=== PATIENT | male | born 1955 | race Caucasian/White ===

== ENCOUNTER → 2016-12-20 | Outpatient (CLI) | payer OTHER | END | disposition home or self-care (01) | LOC: CVU 06:44 | PROVIDERS: ATTEND Internal Medicine Cardiovascular Disease | DX: I25.10 Atherosclerotic heart disease of native coronary artery without angina pectoris (principal); I65.23 Occlusion and stenosis of bilateral carotid arteries; I10 Essential (primary) hypertension; Z95.5 Presence of coronary angioplasty implant and graft | CPT/HCPCS: 78452; 93017; 93306; 93880; A9502 ==

== ENCOUNTER 2019-10-29 07:50 | Inpatient (IN) | payer OTHER ==
[~2019-10-29] VITALS: Ht 170.2 cm; Wt 89.0 kg
[2019-10-29] MEDS ORDERED: MAALOX/HYOSCYAMINE/LIDOCAINE 45 ML BTL ONE (08:22)
[2019-10-29] MEDS ORDERED: NITROGLYCERIN SINGLE TAB 0.4 MG SL ONE (08:22)
--- NOTE | 2019-10-29 08:25 | NUR ---
PT MEDICATED PER JUL, XRAY AT BEDSIDE
[2019-10-29] MEDS ORDERED: NITROGLYCERIN SINGLE TAB 0.4 MG SL PRN (08:30)
[2019-10-29] MEDS ORDERED: SODIUM CHLORIDE FLUSH 10ML SYR IVF ONE (08:30)
[2019-10-29] MEDS ORDERED: MAALOX/HYOSCYAMINE/LIDOCAINE 45 ML BTL PO ONE (08:30)
[2019-10-29 08:52] LABS: BASOPHILS # (AUTO) 0.05 x10^3/uL (0-0.1); BASOPHILS % (AUTO) 1 % (0-1); EOSINOPHILS # (AUTO) 0.09 x10^3/uL (0-0.4); EOSINOPHILS % (AUTO) 1 % (1-7); LYMPHOCYTES # (AUTO) 1.93 x10^3/uL (1-3.4); LYMPHOCYTES % (AUTO) 29 % (22-44); MD NO; MEAN CORPUSCULAR HEMOGLOBIN 29.6 pg (27.5-34.5); MEAN CORPUSCULAR VOLUME 86.9 fL (81-97); MEAN PLATELET VOLUME 7.7 fL (7.4-10.4); MONOCYTES # (AUTO) 0.28 x10^3/uL (0.2-0.8); MONOCYTES % (AUTO) 4 % (2-9); NEUTROPHILS # (AUTO) 4.28 x10^3/uL (1.8-6.8); NEUTROPHILS % (AUTO) 65 % (42-75); PLATELET COUNT 266 x10^3/uL (130-400); RED BLOOD COUNT 5.09 x10^6/uL (4.38-5.82); RED CELL DISTRIBUTION WIDTH 12.9 % (9.4-14.8)
[2019-10-29 09:06] LABS: ANION GAP 6 mmol/L (5-15); CHLORIDE 109 mmol/L (98-107)
[2019-10-29 09:12] LABS: ALANINE AMINOTRANSFERASE 56 U/L (12-78); ALKALINE PHOSPHATASE 69 U/L (45-117); BILIRUBIN,TOTAL 0.7 mg/dL (0.2-1.0); TOTAL PROTEIN 8.1 g/dL (6.4-8.2)
[2019-10-29] MEDS ORDERED: LEVO125T PO (09:21)
[2019-10-29] MEDS ORDERED: ASPI-515 PO (09:21)
[2019-10-29] MEDS ORDERED: METO50TA82 PO (09:21)
[2019-10-29] MEDS ORDERED: ROSU40TA PO (09:21)
[2019-10-29] MEDS ORDERED: LOSA100T14 PO (09:21)
--- NOTE | 2019-10-29 10:34 | NUR ---
ATTEMPTED TO CALL REPORT X1, PLACED ON HOLD >5MIN
--- NOTE | 2019-10-29 10:45 | NUR ---
REPORT TO MUSHTAQ RIVERO
[2019-10-29 11:21] VITALS: BP 143/80
[2019-10-29] MEDS ORDERED: NITROGLYCERIN 0.4 MG BOTTLE (25 TABS) SL PRN (12:00)
[2019-10-29] MEDS ORDERED: LACTATED RINGERS 1,000 ML IV SCH (12:00)
[2019-10-29] MEDS ORDERED: POLYETHYLENE GLYCOL 17 GM PACKET PO PRN (12:00)
[2019-10-29] MEDS ORDERED: ONDANSETRON ODT 4 MG PO PRN (12:00)
[2019-10-29] MEDS ORDERED: morphine SULFATE 10 MG/ML, 1ML IVPush PRN (12:00)
[2019-10-29] MEDS ORDERED: DOCUSATE 100 MG CAPSULE PO PRN (12:00)
[2019-10-29] MEDS ORDERED: ACETAMINOPHEN 325 MG TABLET PO PRN (12:00)
[2019-10-29] MEDS ORDERED: ONDANSETRON 2MG/ML, 2ML IVPush PRN (12:00)
[2019-10-29 12:02] VITALS: BP 154/77
[2019-10-29] MEDS ORDERED: ENOXAPARIN 40 MG/0.4 ML ONE (12:52)
[2019-10-29] MEDS ORDERED: SODIUM CHLORIDE 0.9% 1,000 ML IV SCH (13:22)
[2019-10-29] MEDS ORDERED: DIPHENHYDRAMINE 50 MG/ML, 1ML IVPush ONE (13:30)
[2019-10-29] MEDS ORDERED: methylPREDNISolone SOD SUCC 125 MG/2 ML IVPush ONE (13:30)
[2019-10-29 14:18] LABS: TROPONIN I 0.146 ng/mL (0.000-0.045)
[2019-10-29] MEDS ORDERED: HEPARIN 1,000 UNITS/ML, 10ML ONE (15:27)
[2019-10-29] MEDS ORDERED: MIDAZOLAM 1 MG/ML, 5ML ONE (15:27)
[2019-10-29] MEDS ORDERED: LIDOCAINE-MPF 1%, 5ML ONE (15:27)
[2019-10-29] MEDS ORDERED: TICAGRELOR 90 MG TABLET ONE (15:27)
[2019-10-29] MEDS ORDERED: BIVALIRUDIN 250 MG ONE (15:27)
[2019-10-29] MEDS ORDERED: FENTANYL PF 100 MCG/2ML ONE (15:27)
[2019-10-29] MEDS ORDERED: VERAPAMIL 2.5 MG/ML, 2ML ONE (15:27)
[2019-10-29 17:42] VITALS: BP 134/78
[2019-10-29 19:21] VITALS: BP 132/79
[2019-10-29] MEDS ORDERED: ATORVASTATIN 80 MG TABLET PO SCH (21:00)
[2019-10-29 21:47] LABS: TROPONIN I 0.163 ng/mL (0.000-0.045)
[2019-10-30 01:00] VITALS: BP 127/76
[2019-10-30 04:37] VITALS: BP 125/80
[2019-10-30 05:39] LABS: BASOPHILS # (AUTO) 0.02 x10^3/uL (0-0.1); BASOPHILS % (AUTO) 0 % (0-1); EOSINOPHILS % (AUTO) 0 % (1-7); LYMPHOCYTES # (AUTO) 1.37 x10^3/uL (1-3.4); LYMPHOCYTES % (AUTO) 10 % (22-44); MD NO; MEAN CORPUSCULAR HEMOGLOBIN 29.4 pg (27.5-34.5); MEAN CORPUSCULAR HGB CONC 33.7 g/dL (33.2-36.2); MEAN CORPUSCULAR VOLUME 87.3 fL (81-97); MEAN PLATELET VOLUME 8.4 fL (7.4-10.4); MONOCYTES # (AUTO) 0.12 x10^3/uL (0.2-0.8); MONOCYTES % (AUTO) 1 % (2-9); NEUTROPHILS # (AUTO) 12.25 x10^3/uL (1.8-6.8); NEUTROPHILS % (AUTO) 89 % (42-75); PLATELET COUNT 273 x10^3/uL (130-400); RED CELL DISTRIBUTION WIDTH 13.3 % (9.4-14.8)
[2019-10-30 05:49] LABS: ANION GAP 6 mmol/L (5-15); CALCIUM 8.9 mg/dL (8.5-10.1); CHLORIDE 108 mmol/L (98-107); CHOLESTEROL, TOTAL 148 mg/dL (140-239); CREATININE 1.13 mg/dL (0.7-1.3); TRIGLYCERIDES 58 mg/dL (50-200); VLDL CHOLESTEROL 12 mg/dL (0-25)
[2019-10-30 05:59] LABS: CHOL/HDL RATIO 3.1; HDL CHOL % 32 % (26-37); HDL CHOLESTEROL (DIRECT) 47 mg/dL (40-60); LDL CHOLESTEROL,CALCULATED 89 mg/dL (54-169); LDL/HDL RATIO 1.9 (0.5-3.0)
[2019-10-30] MEDS ORDERED: ASPIRIN 81 MG TABLET EC PO SCH (06:00)
[2019-10-30] MEDS ORDERED: LEVOTHYROXINE 125 MCG TABLET PO SCH (06:00)
[2019-10-30] MEDS ORDERED: METOPROLOL SUCCINATE 50 MG TAB.ER.24H PO SCH (06:00)
[2019-10-30 06:19] LABS: FREE T4 (FREE THYROXINE) 1.03 ng/dL (0.76-1.46)
[2019-10-30 06:31] VITALS: BP 143/84
[2019-10-30] MEDS ORDERED: LOSARTAN 100 MG TAB PO SCH (09:00)
[2019-10-30] MEDS ORDERED: METOPROLOL TARTRATE 50 MG TAB PO SCH (09:00)
[2019-10-30] MEDS ORDERED: ENOXAPARIN 40 MG/0.4 ML SQ SCH (09:00)
[2019-10-30] MEDS ORDERED: NITR0.4T41 SL (10:00)
[2019-10-30 12:07] VITALS: BP 134/74
== END 2019-10-30 13:20 | disposition home or self-care (01) | DRG 287 ==
LOC: ED 08:20 → EDIP 09:33 → 5SO 11:14 → DCLOUNGE 10-30 13:12
PROVIDERS: ADMIT Internal Medicine; ATTEND Internal Medicine
PROC: 4A023N7 Measurement of Cardiac Sampling and Pressure, Left Heart, Percutaneous Approach (ICD-10-PCS; principal; 2019-10-29)
PROC: B2111ZZ Fluoroscopy of Multiple Coronary Arteries using Low Osmolar Contrast (ICD-10-PCS; 2019-10-29)
PROC: B2151ZZ Fluoroscopy of Left Heart using Low Osmolar Contrast (ICD-10-PCS; 2019-10-29)
PROC: 4A0335C Measurement of Arterial Flow, Coronary, Percutaneous Approach (ICD-10-PCS; 2019-10-29)
DX: I24.9 Acute ischemic heart disease, unspecified (principal); T82.855A Stenosis of coronary artery stent, initial encounter; I25.10 Atherosclerotic heart disease of native coronary artery without angina pectoris; N62 Hypertrophy of breast; Y83.1 Surgical operation with implant of artificial internal device as the cause of abnormal reaction of the patient, or of later complication, without mention of misadventure at the time of the procedure; F41.9 Anxiety disorder, unspecified; R73.01 Impaired fasting glucose; R79.89 Other specified abnormal findings of blood chemistry; E78.5 Hyperlipidemia, unspecified; G47.33 Obstructive sleep apnea (adult) (pediatric); I10 Essential (primary) hypertension; Z85.850 Personal history of malignant neoplasm of thyroid; Z87.891 Personal history of nicotine dependence; Z91.041 Radiographic dye allergy status; Z95.5 Presence of coronary angioplasty implant and graft; Z90.89 Acquired absence of other organs; Z79.899 Other long term (current) drug therapy; Z79.82 Long term (current) use of aspirin; Z79.891 Long term (current) use of opiate analgesic; E03.9 Hypothyroidism, unspecified; Z90.49 Acquired absence of other specified parts of digestive tract
CPT/HCPCS: 36415; 71045; 80048; 80053; 80061; 83036; 83605; 84439; 84443; 84481; 84484; 85025; 93005; 93458; 99156; C1769; C1894; G0378; J0583; J1644; J2250; J3010; J1200; J2930; J7030; J7120; Q9967